=== PATIENT | female | born 1985 | race Two or more races ===

== ENCOUNTER 2022-02-05 17:38 | Outpatient (CLI) | payer MEDICAID ==
[2022-02-05 18:45] LABS: THYROID STIMULATING HORMONE 0.49 uIU/mL (0.34-5.60)
[2022-02-05 18:47] LABS: FREE T4 (FREE THYROXINE) 1.02 ng/dL (0.58-1.64)
[2022-02-05 19:12] LABS: FOLLICLE STIMULATING HORMONE 6.31 mIU/mL
== END 2022-02-05 17:39 | disposition home or self-care (01) ==
LOC: LAB 17:38
PROVIDERS: ATTEND Nurse Practitioner Obstetrics & Gynecology
DX: O03.89 Complete or unspecified spontaneous abortion with other complications (principal); N97.9 Female infertility, unspecified
CPT/HCPCS: 36415; 83001; 84144; 84439; 84443; 84702